=== PATIENT | female | born 1940 | race Caucasian/White ===

== ENCOUNTER 2017-02-10 10:31 | Inpatient (IN) | payer MEDICARE, MEDICAID ==
[~2017-02-10] VITALS: Ht 167.6 cm; Wt 75.7 kg
[2017-02-10] MEDS ORDERED: SODIUM CHLORIDE 0.9% 1,000 ML IV ONE (13:15)
[2017-02-10 13:47] LABS: Basophils # (auto) 0 uL; Basophils % (auto) 0.3 % (0.0-2.0); CONDITION Y; Eosinophils # (auto) 0 uL; Eosinophils % (auto) 0.4 % (0.0-7.0); Hematocrit 32.4 % (36.0-46.0); Lymphocytes # (auto) 0.6 uL; Lymphocytes % (auto) 12.3 % (10.0-50.0); Mean Corpuscular Hemoglobin 30.3 pg (28.0-32.0); Mean Corpuscular Hgb Conc. 33.9 g/dL (32.0-36.0); Mean Corpuscular Volume 89.3 fL (80.0-100.0); Mean Platelet Volume 8.9 fL (7.4-10.4); Monocytes # (auto) 0.2 uL; Neutrophils # (auto) 3.7 uL; Platelet Count (auto) 209 10^3/uL (140-450); Red Cell Distribution Width 17.3 % (11.6-16.0); White Blood Cell 4.6 10^3/uL (4.4-10.8)
[2017-02-10 14:02] LABS: INR 1.02 (0.9-1.15); Partial Thromboplastin Time 28.5 sec (22.64-33.71); Prothrombin Time 11.1 sec (9.37-12.3)
[2017-02-10 14:13] LABS: Albumin 3.2 g/dL (3.4-5.0); Alkaline Phosphatase 78 U/L (45-117); Anion Gap 4 (5-15); Aspartate Aminotransferase 17 U/L (15-37); BUN/Creatinine Ratio 33.3; Bilirubin, Total 0.4 mg/dL (0.2-1.0); Blood Urea Nitrogen 14 mg/dL (7-18); Calcium 7.6 mg/dL (8.5-10.1); Carbon Dioxide 27 mmol/L (21-32); Chloride 109 mmol/L (98-107); GFR African American 190 mL/min; GFR Non-African American 157 mL/min; Glucose 105 mg/dL (74-106); Sodium 140 mmol/L (136-145); Total Protein 6.4 g/dL (6.4-8.2)
[2017-02-10] MEDS ORDERED: MORPHINE SULFATE 10 MG/ML INJ 1ML SDV IV ONE (14:45)
[2017-02-10 14:47] LABS: Urine Bilirubin Negative (Negative); Urine Blood Negative /uL (Negative); Urine Color Yellow (Yellow); Urine Glucose Normal (Normal); Urine Ketone Negative (Negative); Urine Mucus FEW (None Seen); Urine Nitrite Negative (Negative); Urine RBC 2 /hpf (0 - 4); Urine Urobilinogen Normal (Negative); Urine pH 8.5 (5.0-8.0)
[2017-02-10] MEDS ORDERED: OMEP20TA34 (16:11)
[2017-02-10] MEDS ORDERED: CARB200T4 (16:11)
[2017-02-10] MEDS ORDERED: LACTULOSE 20Gm/30ML SOLN PO PRN (16:30)
[2017-02-10] MEDS ORDERED: cefTRIAXone 1GM/50ML D5W 50 ML IV ONE (16:30)
[2017-02-10] MEDS ORDERED: fentaNYL 100MCG/HR 100 MCG/HR PAT TD SCH (16:45)
[2017-02-10] MEDS ORDERED: ACETAMINOPHEN 325 MG TAB PO PRN (16:45)
[2017-02-10] MEDS ORDERED: DOCUSATE SOD 100 MG CAP PO PRN (16:45)
[2017-02-10] MEDS: MULTIPLE VITAMIN TAB PO SCH (17:09)
[2017-02-10] MEDS: PANTOPRAZOLE 40 MG TAB PO SCH (17:09)
[2017-02-10] MEDS: BOOST PLUS 8 ounce PO SCH (19:00)
[2017-02-10] MEDS ORDERED: FENT100D11 TD (19:09)
[2017-02-10] MEDS ORDERED: CARB200T PO (19:09)
[2017-02-10] MEDS ORDERED: TEMA15CA PO (19:09)
[2017-02-10] MEDS ORDERED: LEVO112T32 PO (19:09)
[2017-02-10] MEDS ORDERED: ASPITAB34 OR (19:09)
[2017-02-10] MEDS ORDERED: NIAC500T71 PO (19:09)
[2017-02-10] MEDS ORDERED: CLON05T PO (19:09)
[2017-02-10] MEDS ORDERED: MORP30TA PO (19:09)
[2017-02-10 19:30] VITALS: BP 134/54
[2017-02-10] MEDS ORDERED: MIRT45TA PO (19:32)
[2017-02-10 20:00] VITALS: BP 134/54
[2017-02-10 22:00] VITALS: BP 134/54
[2017-02-10] MEDS ORDERED: FAMOTIDINE 20 MG TAB PO SCH (22:00)
[2017-02-10] MEDS: ATORVASTATIN 20 MG TAB PO SCH (22:00)
[2017-02-10] MEDS: SODIUM CHLOR 0.9% PF (SALINE LOCK) 10ML VIAL IV SCH (22:36)
[2017-02-10] MEDS: carBAMazepine 200 MG TAB PO SCH (22:36)
[2017-02-10] MEDS: fentaNYL 100MCG/HR 100 MCG/HR PAT TD SCH (22:37)
[2017-02-11] MEDS: MORPHINE SULF INJ 2 MG/ML SYRINGE 1ML IV PRN ×3 (02:41→20:21)
[2017-02-11 05:30] VITALS: BP 134/77
[2017-02-11] MEDS: SODIUM CHLOR 0.9% PF (SALINE LOCK) 10ML VIAL IV SCH ×3 (05:32→22:00)
[2017-02-11 06:49] LABS: Basophils # (auto) 0 uL; Basophils % (auto) 0.4 % (0.0-2.0); CONDITION Y; Eosinophils # (auto) 0 uL; Eosinophils % (auto) 1.5 % (0.0-7.0); Hematocrit 31.5 % (36.0-46.0); Hemoglobin 10.6 g/dL (12.2-16.2); Lymphocytes # (auto) 0.9 uL; Lymphocytes % (auto) 28.8 % (10.0-50.0); Mean Corpuscular Hemoglobin 30.1 pg (28.0-32.0); Mean Corpuscular Hgb Conc. 33.5 g/dL (32.0-36.0); Mean Corpuscular Volume 89.8 fL (80.0-100.0); Mean Platelet Volume 9.4 fL (7.4-10.4); Monocytes # (auto) 0.2 uL; Monocytes % (auto) 6.1 % (0.0-12.0); Neutrophils % (auto) 63.2 % (37.0-80.0); Platelet Count (auto) 165 10^3/uL (140-450); Red Cell Distribution Width 17.2 % (11.6-16.0); White Blood Cell 3.1 10^3/uL (4.4-10.8)
[2017-02-11 07:13] LABS: Potassium 3.9 mmol/L (3.5-5.1)
[2017-02-11 07:16] LABS: Albumin 3.1 g/dL (3.4-5.0); BUN/Creatinine Ratio 26.2
[2017-02-11 07:27] LABS: Bilirubin, Total 0.3 mg/dL (0.2-1.0); Total Protein 6.3 g/dL (6.4-8.2)
[2017-02-11] MEDS: BOOST PLUS 8 ounce PO SCH ×3 (08:00→18:00)
[2017-02-11] MEDS: cefTRIAXone 1GM/50ML D5W 50 ML IV SCH (09:09)
[2017-02-11] MEDS: carBAMazepine 200 MG TAB PO SCH ×2 (09:09→22:53)
[2017-02-11] MEDS: MULTIPLE VITAMIN TAB PO SCH (09:20)
[2017-02-11] MEDS: PANTOPRAZOLE 40 MG TAB PO SCH (09:21)
[2017-02-11 13:00] VITALS: BP 155/88
[2017-02-11 16:53] VITALS: BP 157/82
[2017-02-11 22:00] VITALS: BP 143/84
[2017-02-11] MEDS: ATORVASTATIN 20 MG TAB PO SCH (22:53)
[2017-02-11] MEDS: TEMAZEPAM 15 MG CAP PO PRN (22:54)
[2017-02-12 05:00] VITALS: BP_SYST 144; BP_SYST 163; BP_DIAS 84; BP_DIAS 88
[2017-02-12 06:04] LABS: Basophils # (auto) 0 uL; Basophils % (auto) 0.3 % (0.0-2.0); CONDITION Y; Eosinophils # (auto) 0.1 uL; Eosinophils % (auto) 1.4 % (0.0-7.0); Hematocrit 35.2 % (36.0-46.0); Hemoglobin 11.7 g/dL (12.2-16.2); Lymphocytes # (auto) 1.1 uL; Lymphocytes % (auto) 27.2 % (10.0-50.0); Mean Corpuscular Hemoglobin 29.9 pg (28.0-32.0); Mean Corpuscular Hgb Conc. 33.2 g/dL (32.0-36.0); Mean Corpuscular Volume 90.1 fL (80.0-100.0); Mean Platelet Volume 9.1 fL (7.4-10.4); Monocytes # (auto) 0.3 uL; Monocytes % (auto) 6.5 % (0.0-12.0); Neutrophils # (auto) 2.6 uL; Neutrophils % (auto) 64.6 % (37.0-80.0); Platelet Count (auto) 191 10^3/uL (140-450); Red Cell Distribution Width 16.6 % (11.6-16.0); White Blood Cell 4.1 10^3/uL (4.4-10.8)
[2017-02-12] MEDS: SODIUM CHLOR 0.9% PF (SALINE LOCK) 10ML VIAL IV SCH ×3 (06:09→21:43)
[2017-02-12 06:28] LABS: Albumin 3.4 g/dL (3.4-5.0); BUN/Creatinine Ratio 23.5; Bilirubin, Total 0.4 mg/dL (0.2-1.0); Calcium 8.2 mg/dL (8.5-10.1); Potassium 3.3 mmol/L (3.5-5.1); Total Protein 6.8 g/dL (6.4-8.2)
[2017-02-12 08:00] VITALS: BP 147/72
[2017-02-12] MEDS: cefTRIAXone 1GM/50ML D5W 50 ML IV SCH (08:55)
[2017-02-12] MEDS: MORPHINE SULF INJ 2 MG/ML SYRINGE 1ML IV PRN ×4 (08:56→21:43)
[2017-02-12] MEDS: PANTOPRAZOLE 40 MG TAB PO SCH (10:20)
[2017-02-12] MEDS: carBAMazepine 200 MG TAB PO SCH ×2 (10:20→21:42)
[2017-02-12] MEDS: MULTIPLE VITAMIN TAB PO SCH (10:20)
[2017-02-12] MEDS: BOOST PLUS 8 ounce PO SCH ×3 (11:27→18:23)
[2017-02-12 12:44] VITALS: BP 163/85
[2017-02-12 17:00] VITALS: BP 153/93
[2017-02-12] MEDS ORDERED: POTASSIUM CHL 20 Meq TABLET PO ONE (17:30)
[2017-02-12] MEDS: ATORVASTATIN 20 MG TAB PO SCH (21:42)
[2017-02-12 22:00] VITALS: BP 146/73
[2017-02-12] MEDS: TEMAZEPAM 15 MG CAP PO PRN (23:27)
[2017-02-13] VITALS (7 sets, daily range): BP systolic 137–171; BP diastolic 72–99
[2017-02-13] MEDS: SODIUM CHLOR 0.9% PF (SALINE LOCK) 10ML VIAL IV SCH ×3 (06:00→22:00)
[2017-02-13 06:54] LABS: Basophils # (auto) 0 uL; Basophils % (auto) 0.4 % (0.0-2.0); CONDITION Y; Eosinophils # (auto) 0.1 uL; Eosinophils % (auto) 1.6 % (0.0-7.0); Hematocrit 36.7 % (36.0-46.0); Hemoglobin 12.6 g/dL (12.2-16.2); Lymphocytes % (auto) 26.6 % (10.0-50.0); Mean Corpuscular Hemoglobin 30.3 pg (28.0-32.0); Mean Corpuscular Hgb Conc. 34.5 g/dL (32.0-36.0); Mean Corpuscular Volume 87.9 fL (80.0-100.0); Mean Platelet Volume 8.8 fL (7.4-10.4); Monocytes # (auto) 0.3 uL; Neutrophils # (auto) 2.4 uL; Neutrophils % (auto) 64.4 % (37.0-80.0); Platelet Count (auto) 200 10^3/uL (140-450); Red Cell Distribution Width 16.3 % (11.6-16.0); White Blood Cell 3.8 10^3/uL (4.4-10.8)
[2017-02-13 07:23] LABS: Calcium 8.2 mg/dL (8.5-10.1); Magnesium 2.4 mg/dL (1.6-2.6); Phosphorus 3.2 mg/dL (2.5-4.90); Potassium 3.8 mmol/L (3.5-5.1)
[2017-02-13] MEDS: MORPHINE SULF INJ 2 MG/ML SYRINGE 1ML IV PRN ×4 (07:39→20:33)
[2017-02-13] MEDS: ONDANSETRON HCL 4 MG/2 ML VIAL IV PRN (07:46)
[2017-02-13] MEDS: PANTOPRAZOLE 40 MG TAB PO SCH (09:38)
[2017-02-13] MEDS: cefTRIAXone 1GM/50ML D5W 50 ML IV SCH (09:38)
[2017-02-13] MEDS: carBAMazepine 200 MG TAB PO SCH ×2 (09:38→22:53)
[2017-02-13] MEDS: MULTIPLE VITAMIN TAB PO SCH (09:38)
[2017-02-13] MEDS: BOOST PLUS 8 ounce PO SCH ×3 (09:39→17:40)
[2017-02-13] MEDS: metroNIDAZOLE 500 MG TAB PO SCH (17:40)
[2017-02-13] MEDS: ATORVASTATIN 20 MG TAB PO SCH (22:53)
[2017-02-13] MEDS: TEMAZEPAM 15 MG CAP PO PRN (22:53)
[2017-02-13] MEDS: fentaNYL 100MCG/HR 100 MCG/HR PAT TD SCH (22:55)
[2017-02-14] MEDS: MORPHINE SULF INJ 2 MG/ML SYRINGE 1ML IV PRN ×5 (04:22→21:53)
[2017-02-14 05:00] VITALS: BP 153/91
[2017-02-14] MEDS: SODIUM CHLOR 0.9% PF (SALINE LOCK) 10ML VIAL IV SCH ×3 (06:14→22:04)
[2017-02-14 06:29] LABS: Basophils # (auto) 0 uL; Basophils % (auto) 0.4 % (0.0-2.0); CONDITION Y; Eosinophils # (auto) 0.1 uL; Eosinophils % (auto) 1.6 % (0.0-7.0); Hematocrit 36.3 % (36.0-46.0); Hemoglobin 12.4 g/dL (12.2-16.2); Lymphocytes # (auto) 1.1 uL; Lymphocytes % (auto) 34.1 % (10.0-50.0); Mean Corpuscular Hemoglobin 30.3 pg (28.0-32.0); Mean Corpuscular Hgb Conc. 34.1 g/dL (32.0-36.0); Mean Corpuscular Volume 88.9 fL (80.0-100.0); Mean Platelet Volume 9.2 fL (7.4-10.4); Monocytes # (auto) 0.3 uL; Monocytes % (auto) 7.8 % (0.0-12.0); Neutrophils # (auto) 1.9 uL; Neutrophils % (auto) 56.1 % (37.0-80.0); Platelet Count (auto) 168 10^3/uL (140-450); Red Cell Distribution Width 15.8 % (11.6-16.0); White Blood Cell 3.3 10^3/uL (4.4-10.8)
[2017-02-14] MEDS: metroNIDAZOLE 500 MG TAB PO SCH ×4 (06:48→17:40)
[2017-02-14 07:01] LABS: BUN/Creatinine Ratio 34.1; Calcium 8.2 mg/dL (8.5-10.1); Magnesium 2.6 mg/dL (1.6-2.6); Phosphorus 3.7 mg/dL (2.5-4.90); Potassium 3.7 mmol/L (3.5-5.1)
[2017-02-14 08:00] VITALS: BP 122/64
[2017-02-14] MEDS: BOOST PLUS 8 ounce PO SCH ×3 (09:03→17:39)
[2017-02-14] MEDS: cefTRIAXone 1GM/50ML D5W 50 ML IV SCH (09:16)
[2017-02-14 09:17] VITALS: BP 122/64
[2017-02-14] MEDS: MULTIPLE VITAMIN TAB PO SCH (09:17)
[2017-02-14] MEDS: carBAMazepine 200 MG TAB PO SCH ×2 (09:17→21:52)
[2017-02-14 13:00] VITALS: BP 138/73
[2017-02-14 16:49] VITALS: BP 145/87
[2017-02-14] MEDS: ALPRAZolam 0.5 MG TAB PO PRN (18:26)
[2017-02-14 21:37] VITALS: BP 124/73
[2017-02-14] MEDS: ATORVASTATIN 20 MG TAB PO SCH (21:53)
[2017-02-15] MEDS: metroNIDAZOLE 500 MG TAB PO SCH ×5 (00:10→23:01)
[2017-02-15] MEDS: MORPHINE SULF INJ 2 MG/ML SYRINGE 1ML IV PRN ×4 (03:53→20:18)
[2017-02-15] MEDS: ONDANSETRON HCL 4 MG/2 ML VIAL IV PRN ×4 (04:36→20:18)
[2017-02-15] MEDS: SODIUM CHLOR 0.9% PF (SALINE LOCK) 10ML VIAL IV SCH ×3 (05:47→21:24)
[2017-02-15 05:52] VITALS: BP 108/68
[2017-02-15 08:30] VITALS: BP 136/86
[2017-02-15] MEDS: carBAMazepine 200 MG TAB PO SCH ×2 (09:30→21:24)
[2017-02-15] MEDS: MULTIPLE VITAMIN TAB PO SCH (09:30)
[2017-02-15] MEDS: cefTRIAXone 1GM/50ML D5W 50 ML IV SCH (09:31)
[2017-02-15] MEDS: BOOST PLUS 8 ounce PO SCH ×3 (09:31→18:00)
[2017-02-15 12:33] VITALS: BP 150/92
[2017-02-15 16:42] VITALS: BP 160/85
[2017-02-15] MEDS: TEMAZEPAM 15 MG CAP PO PRN (21:23)
[2017-02-15] MEDS: ATORVASTATIN 20 MG TAB PO SCH (21:24)
[2017-02-15 22:00] VITALS: BP 131/80
[2017-02-15] MEDS: ALPRAZolam 0.5 MG TAB PO PRN (23:01)
[2017-02-16 05:00] VITALS: BP 151/78
[2017-02-16] MEDS: SODIUM CHLOR 0.9% PF (SALINE LOCK) 10ML VIAL IV SCH ×3 (05:27→22:13)
[2017-02-16] MEDS: metroNIDAZOLE 500 MG TAB PO SCH ×4 (05:27→23:37)
[2017-02-16] MEDS: MORPHINE SULF INJ 2 MG/ML SYRINGE 1ML IV PRN ×4 (05:27→22:15)
[2017-02-16] MEDS: ONDANSETRON HCL 4 MG/2 ML VIAL IV PRN ×4 (05:28→22:15)
[2017-02-16] MEDS: BOOST PLUS 8 ounce PO SCH ×3 (07:37→22:10)
[2017-02-16] MEDS: cefTRIAXone 1GM/50ML D5W 50 ML IV SCH (08:49)
[2017-02-16 08:57] VITALS: BP 129/69
[2017-02-16] MEDS: carBAMazepine 200 MG TAB PO SCH ×2 (09:46→22:13)
[2017-02-16] MEDS: MULTIPLE VITAMIN TAB PO SCH (09:46)
[2017-02-16] MEDS: ALPRAZolam 0.5 MG TAB PO PRN (12:00)
[2017-02-16] MEDS ORDERED: MET500T PO (12:16)
[2017-02-16 13:00] VITALS: BP 146/73
[2017-02-16 17:00] VITALS: BP 138/73
[2017-02-16 22:00] VITALS: BP 103/44
[2017-02-16] MEDS: ATORVASTATIN 20 MG TAB PO SCH (22:13)
[2017-02-16] MEDS: fentaNYL 100MCG/HR 100 MCG/HR PAT TD SCH (22:14)
[2017-02-17] MEDS: MORPHINE SULF INJ 2 MG/ML SYRINGE 1ML IV PRN ×4 (04:01→20:43)
[2017-02-17] MEDS: ONDANSETRON HCL 4 MG/2 ML VIAL IV PRN ×3 (04:02→20:43)
[2017-02-17 05:00] VITALS: BP 125/65
[2017-02-17] MEDS: SODIUM CHLOR 0.9% PF (SALINE LOCK) 10ML VIAL IV SCH ×3 (05:38→21:42)
[2017-02-17] MEDS: metroNIDAZOLE 500 MG TAB PO SCH ×3 (05:38→18:00)
[2017-02-17] MEDS: ALPRAZolam 0.5 MG TAB PO PRN ×2 (05:50→17:13)
[2017-02-17 08:00] VITALS: BP 139/76
[2017-02-17] MEDS: BOOST PLUS 8 ounce PO SCH ×3 (08:00→18:00)
[2017-02-17 08:11] VITALS: BP 139/76
[2017-02-17] MEDS: MULTIPLE VITAMIN TAB PO SCH (09:21)
[2017-02-17] MEDS: carBAMazepine 200 MG TAB PO SCH ×2 (09:21→21:41)
[2017-02-17] MEDS: cefTRIAXone 1GM/50ML D5W 50 ML IV SCH (09:21)
[2017-02-17 12:45] VITALS: BP 133/72
[2017-02-17] MEDS: fentaNYL 100MCG/HR 100 MCG/HR PAT TD SCH (13:51)
[2017-02-17] MEDS: cloNIDine HCL 0.1 MG TAB PO PRN (16:08)
[2017-02-17 16:48] VITALS: BP 165/98
[2017-02-17] MEDS: TEMAZEPAM 15 MG CAP PO PRN (21:41)
[2017-02-17] MEDS: ATORVASTATIN 20 MG TAB PO SCH (21:42)
[2017-02-17 22:25] VITALS: BP 141/85
[2017-02-18] VITALS (7 sets, daily range): BP systolic 119–157; BP diastolic 55–85
[2017-02-18] MEDS: ALPRAZolam 0.5 MG TAB PO PRN ×2 (00:01→14:21)
[2017-02-18] MEDS: ONDANSETRON HCL 4 MG/2 ML VIAL IV PRN ×3 (05:02→20:07)
[2017-02-18] MEDS: MORPHINE SULF INJ 2 MG/ML SYRINGE 1ML IV PRN ×2 (05:02→12:56)
[2017-02-18] MEDS: SODIUM CHLOR 0.9% PF (SALINE LOCK) 10ML VIAL IV SCH ×3 (05:52→20:20)
[2017-02-18] MEDS: metroNIDAZOLE 500 MG TAB PO SCH ×4 (05:53→20:18)
[2017-02-18] MEDS: MULTIPLE VITAMIN TAB PO SCH (10:09)
[2017-02-18] MEDS: BOOST PLUS 8 ounce PO SCH ×3 (10:09→19:30)
[2017-02-18] MEDS: carBAMazepine 200 MG TAB PO SCH ×2 (10:09→20:19)
[2017-02-18] MEDS: MORPHINE SULFATE 4 MG/ML SYRG IV PRN (20:02)
[2017-02-18] MEDS: ATORVASTATIN 20 MG TAB PO SCH (20:19)
[2017-02-18] MEDS ORDERED: HYDROmorphone HCL 2 MG/ML VL IV ONE (23:15)
[2017-02-19] VITALS (7 sets, daily range): BP systolic 124–155; BP diastolic 65–95
[2017-02-19] MEDS: ONDANSETRON HCL 4 MG/2 ML VIAL IV PRN ×3 (05:04→10:53)
[2017-02-19] MEDS: MORPHINE SULFATE 4 MG/ML SYRG IV PRN ×2 (05:09→10:53)
[2017-02-19] MEDS: SODIUM CHLOR 0.9% PF (SALINE LOCK) 10ML VIAL IV SCH ×3 (05:09→21:24)
[2017-02-19] MEDS: metroNIDAZOLE 500 MG TAB PO SCH ×5 (05:09→21:24)
[2017-02-19] MEDS: ALPRAZolam 0.5 MG TAB PO PRN ×2 (05:22→20:53)
[2017-02-19] MEDS: BOOST PLUS 8 ounce PO SCH ×3 (08:00→18:01)
[2017-02-19] MEDS: carBAMazepine 200 MG TAB PO SCH ×2 (10:53→21:24)
[2017-02-19] MEDS: MULTIPLE VITAMIN TAB PO SCH (10:53)
[2017-02-19] MEDS: HYDROcodone-ACET 5/325MG TAB PO PRN ×3 (15:18→21:25)
[2017-02-19] MEDS: MIRTAZAPINE 30 MG TAB PO SCH (21:24)
[2017-02-19] MEDS: ATORVASTATIN 20 MG TAB PO SCH (21:24)
[2017-02-19] MEDS: TEMAZEPAM 15 MG CAP PO PRN (21:25)
[2017-02-19] MEDS ORDERED: MORPHINE SULF 30 mg ER tab PO SCH (22:00)
[2017-02-20] MEDS: SODIUM CHLOR 0.9% PF (SALINE LOCK) 10ML VIAL IV SCH ×3 (04:51→22:05)
[2017-02-20] MEDS: metroNIDAZOLE 500 MG TAB PO SCH ×3 (04:51→17:28)
[2017-02-20 05:29] VITALS: BP 136/75
[2017-02-20 05:43] LABS: Basophils # (auto) 0 uL; Basophils % (auto) 0.6 % (0.0-2.0); CONDITION Y; Eosinophils # (auto) 0.1 uL; Eosinophils % (auto) 2.7 % (0.0-7.0); Hemoglobin 11.8 g/dL (12.2-16.2); Lymphocytes # (auto) 1.5 uL; Lymphocytes % (auto) 42.6 % (10.0-50.0); Mean Corpuscular Hemoglobin 30.3 pg (28.0-32.0); Mean Corpuscular Hgb Conc. 33.7 g/dL (32.0-36.0); Mean Corpuscular Volume 89.8 fL (80.0-100.0); Mean Platelet Volume 9.1 fL (7.4-10.4); Monocytes # (auto) 0.2 uL; Monocytes % (auto) 6.5 % (0.0-12.0); Neutrophils # (auto) 1.7 uL; Neutrophils % (auto) 47.6 % (37.0-80.0); Platelet Count (auto) 167 10^3/uL (140-450); Red Cell Distribution Width 16.7 % (11.6-16.0); White Blood Cell 3.6 10^3/uL (4.4-10.8)
[2017-02-20 06:03] LABS: Potassium 4.1 mmol/L (3.5-5.1)
[2017-02-20 06:05] LABS: BUN/Creatinine Ratio 27.3; Calcium 8.1 mg/dL (8.5-10.1)
[2017-02-20] MEDS ORDERED: LEVOTHYROXINE SODIUM 112 MCG TAB PO SCH (07:00)
[2017-02-20] MEDS ORDERED: LEVOTHYROXINE SODIUM 25 MCG TAB PO SCH (07:00)
[2017-02-20 07:59] VITALS: BP 130/76
[2017-02-20 08:00] VITALS: BP 143/72
[2017-02-20] MEDS: BOOST PLUS 8 ounce PO SCH ×3 (08:00→18:12)
[2017-02-20] MEDS: HYDROcodone-ACET 5/325MG TAB PO PRN ×3 (08:52→17:28)
[2017-02-20] MEDS: MULTIPLE VITAMIN TAB PO SCH (08:52)
[2017-02-20] MEDS: carBAMazepine 200 MG TAB PO SCH ×2 (08:52→22:06)
[2017-02-20 11:38] VITALS: BP 131/76
[2017-02-20] MEDS: ALPRAZolam 0.5 MG TAB PO PRN ×3 (12:43→18:34)
[2017-02-20 16:25] VITALS: BP 124/76
[2017-02-20] MEDS: fentaNYL 100MCG/HR 100 MCG/HR PAT TD SCH (17:30)
[2017-02-20 21:49] VITALS: BP 134/83
[2017-02-20] MEDS: ATORVASTATIN 20 MG TAB PO SCH (22:05)
[2017-02-20] MEDS: MIRTAZAPINE 30 MG TAB PO SCH (22:06)
[2017-02-21 05:15] VITALS: BP 130/85
[2017-02-21] MEDS: SODIUM CHLOR 0.9% PF (SALINE LOCK) 10ML VIAL IV SCH ×3 (05:33→22:26)
[2017-02-21] MEDS: metroNIDAZOLE 500 MG TAB PO SCH ×4 (05:33→17:58)
[2017-02-21] MEDS: LEVOTHYROXINE SODIUM 50 MCG TAB PO SCH (06:12)
[2017-02-21] MEDS: HYDROcodone-ACET 5/325MG TAB PO PRN ×2 (08:39→14:42)
[2017-02-21] MEDS: ALPRAZolam 0.5 MG TAB PO PRN (08:39)
[2017-02-21 09:00] VITALS: BP 145/82
[2017-02-21] MEDS: BOOST PLUS 8 ounce PO SCH ×3 (11:16→17:57)
[2017-02-21] MEDS: carBAMazepine 200 MG TAB PO SCH ×2 (11:17→22:26)
[2017-02-21] MEDS: MULTIPLE VITAMIN TAB PO SCH (11:17)
[2017-02-21 13:00] VITALS: BP 140/77
[2017-02-21 17:00] VITALS: BP 137/78
[2017-02-21] MEDS: MORPHINE SULFATE 10 MG/5 ML ORAL SOLN PO PRN (18:40)
[2017-02-21 21:41] VITALS: BP 143/94
[2017-02-21] MEDS: busPIRone HCL 10 MG TAB PO SCH (22:26)
[2017-02-21] MEDS: ATORVASTATIN 20 MG TAB PO SCH (22:26)
[2017-02-21] MEDS: MIRTAZAPINE 30 MG TAB PO SCH (22:26)
[2017-02-22] MEDS: metroNIDAZOLE 500 MG TAB PO SCH ×5 (00:22→23:50)
[2017-02-22 05:00] VITALS: BP 142/83
[2017-02-22] MEDS: SODIUM CHLOR 0.9% PF (SALINE LOCK) 10ML VIAL IV SCH ×3 (06:22→21:55)
[2017-02-22] MEDS: busPIRone HCL 10 MG TAB PO SCH ×3 (06:30→22:00)
[2017-02-22] MEDS: LEVOTHYROXINE SODIUM 50 MCG TAB PO SCH (06:30)
[2017-02-22 08:00] VITALS: BP 138/62
[2017-02-22] MEDS: MORPHINE SULFATE 10 MG/5 ML ORAL SOLN PO PRN ×2 (08:35→18:20)
[2017-02-22] MEDS: BOOST PLUS 8 ounce PO SCH ×3 (08:55→18:20)
[2017-02-22] MEDS: cloNIDine HCL 0.1 MG TAB PO PRN (08:56)
[2017-02-22 09:00] VITALS: BP 167/85
[2017-02-22] MEDS: carBAMazepine 200 MG TAB PO SCH ×2 (09:55→22:00)
[2017-02-22] MEDS: MULTIPLE VITAMIN TAB PO SCH (09:55)
[2017-02-22 12:08] VITALS: BP 128/71
[2017-02-22] MEDS: ONDANSETRON HCL 4 MG/2 ML VIAL IV PRN (14:52)
[2017-02-22] MEDS: ALPRAZolam 0.5 MG TAB PO PRN (14:53)
[2017-02-22 17:06] VITALS: BP 154/88
[2017-02-22] MEDS ORDERED: BISACODYL 5 MG EC TAB PO PRN (19:00)
[2017-02-22 21:39] VITALS: BP 140/83
[2017-02-22] MEDS: ATORVASTATIN 20 MG TAB PO SCH (22:00)
[2017-02-22] MEDS: MIRTAZAPINE 30 MG TAB PO SCH (22:00)
[2017-02-23 05:21] VITALS: BP 134/86
[2017-02-23] MEDS: SODIUM CHLOR 0.9% PF (SALINE LOCK) 10ML VIAL IV SCH ×3 (05:49→21:17)
[2017-02-23] MEDS: metroNIDAZOLE 500 MG TAB PO SCH ×4 (06:04→23:50)
[2017-02-23] MEDS: busPIRone HCL 10 MG TAB PO SCH ×3 (06:04→21:16)
[2017-02-23] MEDS: LEVOTHYROXINE SODIUM 50 MCG TAB PO SCH (06:04)
[2017-02-23] MEDS: BOOST PLUS 8 ounce PO SCH ×3 (08:23→17:27)
[2017-02-23] MEDS: carBAMazepine 200 MG TAB PO SCH ×2 (09:01→21:16)
[2017-02-23] MEDS: MULTIPLE VITAMIN TAB PO SCH (09:01)
[2017-02-23] MEDS: MORPHINE SULFATE 10 MG/5 ML ORAL SOLN PO PRN ×2 (09:01→20:09)
[2017-02-23 09:17] VITALS: BP 144/75
[2017-02-23] MEDS: ALPRAZolam 0.5 MG TAB PO PRN (12:31)
[2017-02-23] MEDS ORDERED: METR500T PO (12:43)
[2017-02-23] MEDS ORDERED: MIR30T PO (12:44)
[2017-02-23] MEDS ORDERED: BUSP10TA90 PO (12:44)
[2017-02-23] MEDS ORDERED: ACETAMINOPHEN 325 MG TAB PO PRN (12:45)
[2017-02-23] MEDS ORDERED: ONDANSETRON HCL 4 MG/2 ML VIAL IV PRN (12:45)
[2017-02-23] MEDS ORDERED: FLEET ENEMA(ADULT) 135 ML PR ONE (12:45)
[2017-02-23] MEDS ORDERED: DOCUSATE SOD 100 MG CAP PO PRN (12:45)
[2017-02-23] MEDS: fentaNYL 100MCG/HR 100 MCG/HR PAT TD SCH (12:58)
[2017-02-23 13:00] VITALS: BP 146/68
[2017-02-23] MEDS ORDERED: busPIRone HCL 10 MG TAB PO ONE (13:00)
[2017-02-23] MEDS ORDERED: carBAMazepine 200 MG TAB PO ONE (13:00)
[2017-02-23 17:00] VITALS: BP 159/91
[2017-02-23] MEDS ORDERED: MORPHINE SULFATE 10 MG/5 ML ORAL SOLN ONE (20:01)
[2017-02-23] MEDS: ATORVASTATIN 20 MG TAB PO SCH (21:16)
[2017-02-23] MEDS: MIRTAZAPINE 30 MG TAB PO SCH (21:17)
[2017-02-23 22:46] VITALS: BP 150/70
[2017-02-23 22:47] VITALS: BP 150/70
[2017-02-24 04:42] VITALS: BP 163/74
[2017-02-24] MEDS: LEVOTHYROXINE SODIUM 50 MCG TAB PO SCH (06:02)
[2017-02-24] MEDS: SODIUM CHLOR 0.9% PF (SALINE LOCK) 10ML VIAL IV SCH ×3 (06:02→21:29)
[2017-02-24] MEDS: metroNIDAZOLE 500 MG TAB PO SCH ×4 (06:02→23:47)
[2017-02-24] MEDS: busPIRone HCL 10 MG TAB PO SCH ×3 (06:02→21:30)
[2017-02-24] MEDS: cloNIDine HCL 0.1 MG TAB PO PRN (06:12)
[2017-02-24] MEDS: BOOST PLUS 8 ounce PO SCH ×3 (08:00→18:00)
[2017-02-24] MEDS: MORPHINE SULFATE 10 MG/5 ML ORAL SOLN PO PRN ×2 (08:40→17:50)
[2017-02-24 09:00] VITALS: BP 158/98
[2017-02-24] MEDS: carBAMazepine 200 MG TAB PO SCH ×2 (09:26→21:30)
[2017-02-24] MEDS: MULTIPLE VITAMIN TAB PO SCH (09:27)
[2017-02-24] MEDS: ALPRAZolam 0.5 MG TAB PO PRN (09:53)
[2017-02-24 13:00] VITALS: BP 137/95
[2017-02-24] MEDS: ATENOLOL 25 MG TAB PO SCH (15:45)
[2017-02-24 17:00] VITALS: BP 149/67
[2017-02-24] MEDS: MIRTAZAPINE 30 MG TAB PO SCH (21:30)
[2017-02-24] MEDS: ATORVASTATIN 20 MG TAB PO SCH (21:30)
[2017-02-24 22:00] VITALS: BP 141/72
[2017-02-25 05:24] VITALS: BP 130/85
[2017-02-25] MEDS: metroNIDAZOLE 500 MG TAB PO SCH ×3 (06:31→21:22)
[2017-02-25] MEDS: SODIUM CHLOR 0.9% PF (SALINE LOCK) 10ML VIAL IV SCH ×3 (06:31→21:21)
[2017-02-25] MEDS: LEVOTHYROXINE SODIUM 50 MCG TAB PO SCH (06:31)
[2017-02-25] MEDS: busPIRone HCL 10 MG TAB PO SCH ×3 (06:31→21:21)
[2017-02-25] MEDS: BOOST PLUS 8 ounce PO SCH ×2 (08:10→12:00)
[2017-02-25] MEDS: ALPRAZolam 0.5 MG TAB PO PRN (08:32)
[2017-02-25 09:00] VITALS: BP 124/84
[2017-02-25] MEDS: carBAMazepine 200 MG TAB PO SCH ×2 (10:26→21:22)
[2017-02-25] MEDS: MULTIPLE VITAMIN TAB PO SCH (10:26)
[2017-02-25] MEDS: ATENOLOL 25 MG TAB PO SCH (10:27)
[2017-02-25 13:03] VITALS: BP 125/80
[2017-02-25] MEDS ORDERED: cloNIDine HCL 0.1 MG TAB PO PRN (13:45)
[2017-02-25] MEDS ORDERED: metroNIDAZOLE 500 MG TAB PO SCH (14:00)
[2017-02-25 17:03] VITALS: BP 134/79
[2017-02-25 20:00] VITALS: BP 126/67
[2017-02-25] MEDS: MORPHINE SULFATE 10 MG/5 ML ORAL SOLN PO PRN (20:26)
[2017-02-25] MEDS: MIRTAZAPINE 30 MG TAB PO SCH (21:22)
[2017-02-25] MEDS: ATORVASTATIN 20 MG TAB PO SCH (21:22)
[2017-02-25] MEDS: TEMAZEPAM 15 MG CAP PO PRN (21:34)
[2017-02-25 21:58] VITALS: BP 126/67
[2017-02-26 04:46] VITALS: BP 148/69
[2017-02-26] MEDS: metroNIDAZOLE 500 MG TAB PO SCH (06:00)
[2017-02-26] MEDS: SODIUM CHLOR 0.9% PF (SALINE LOCK) 10ML VIAL IV SCH ×3 (06:00→22:06)
[2017-02-26] MEDS: busPIRone HCL 10 MG TAB PO SCH ×3 (06:00→22:06)
[2017-02-26] MEDS: LEVOTHYROXINE SODIUM 50 MCG TAB PO SCH (06:01)
[2017-02-26] MEDS: BOOST PLUS 8 ounce PO SCH ×4 (08:00→18:00)
[2017-02-26] MEDS: carBAMazepine 200 MG TAB PO SCH ×2 (08:56→22:07)
[2017-02-26] MEDS: MULTIPLE VITAMIN TAB PO SCH (08:56)
[2017-02-26] MEDS: MORPHINE SULFATE 10 MG/5 ML ORAL SOLN PO PRN ×2 (08:56→15:47)
[2017-02-26 09:00] VITALS: BP 142/73
[2017-02-26] MEDS: ATENOLOL 25 MG TAB PO SCH (09:06)
[2017-02-26] MEDS: ALPRAZolam 0.5 MG TAB PO PRN ×3 (09:06→22:07)
[2017-02-26 13:00] VITALS: BP 140/80
[2017-02-26] MEDS: fentaNYL 100MCG/HR 100 MCG/HR PAT TD SCH (13:58)
[2017-02-26 16:59] VITALS: BP 117/61
[2017-02-26 20:00] VITALS: BP 122/71
[2017-02-26 21:30] VITALS: BP 122/71
[2017-02-26] MEDS: MIRTAZAPINE 30 MG TAB PO SCH (22:07)
[2017-02-26] MEDS: ATORVASTATIN 20 MG TAB PO SCH (22:07)
[2017-02-27] MEDS: TEMAZEPAM 15 MG CAP PO PRN (01:25)
[2017-02-27 05:00] VITALS: BP 131/64
[2017-02-27] MEDS: LEVOTHYROXINE SODIUM 50 MCG TAB PO SCH (05:34)
[2017-02-27] MEDS: SODIUM CHLOR 0.9% PF (SALINE LOCK) 10ML VIAL IV SCH ×3 (05:34→21:20)
[2017-02-27] MEDS: busPIRone HCL 10 MG TAB PO SCH ×3 (05:34→21:18)
[2017-02-27 08:00] VITALS: BP 136/76
[2017-02-27] MEDS: BOOST PLUS 8 ounce PO SCH ×3 (08:00→18:02)
[2017-02-27 08:39] VITALS: BP 136/76
[2017-02-27] MEDS: MORPHINE SULFATE 10 MG/5 ML ORAL SOLN PO PRN ×2 (09:42→15:10)
[2017-02-27] MEDS: carBAMazepine 200 MG TAB PO SCH ×2 (10:18→21:19)
[2017-02-27] MEDS: ALPRAZolam 0.5 MG TAB PO PRN ×2 (10:18→21:59)
[2017-02-27] MEDS: MULTIPLE VITAMIN TAB PO SCH (10:18)
[2017-02-27] MEDS: ATENOLOL 25 MG TAB PO SCH (10:19)
[2017-02-27 13:00] VITALS: BP 126/72
[2017-02-27 17:33] VITALS: BP 121/59
[2017-02-27] MEDS: ATORVASTATIN 20 MG TAB PO SCH (21:19)
[2017-02-27] MEDS: MIRTAZAPINE 30 MG TAB PO SCH (21:20)
[2017-02-27 22:00] VITALS: BP 143/68
[2017-02-28 05:05] VITALS: BP 129/75
[2017-02-28] MEDS: SODIUM CHLOR 0.9% PF (SALINE LOCK) 10ML VIAL IV SCH ×3 (06:00→21:47)
[2017-02-28] MEDS: busPIRone HCL 10 MG TAB PO SCH ×3 (06:46→21:43)
[2017-02-28] MEDS: LEVOTHYROXINE SODIUM 50 MCG TAB PO SCH (06:47)
[2017-02-28] MEDS: BOOST PLUS 8 ounce PO SCH ×3 (07:27→17:02)
[2017-02-28 08:00] VITALS: BP 149/72
[2017-02-28] MEDS: ATENOLOL 25 MG TAB PO SCH (09:11)
[2017-02-28] MEDS: MULTIPLE VITAMIN TAB PO SCH (09:11)
[2017-02-28] MEDS: MORPHINE SULFATE 10 MG/5 ML ORAL SOLN PO PRN ×2 (09:12→13:54)
[2017-02-28 09:26] VITALS: BP 160/91
[2017-02-28] MEDS: carBAMazepine 200 MG TAB PO SCH ×2 (09:49→21:47)
[2017-02-28 13:00] VITALS: BP 150/74
[2017-02-28] MEDS: ALPRAZolam 0.5 MG TAB PO PRN ×2 (15:10→21:45)
[2017-02-28 17:18] VITALS: BP 111/67
[2017-02-28 21:39] VITALS: BP 127/73
[2017-02-28] MEDS: ATORVASTATIN 20 MG TAB PO SCH (21:44)
[2017-02-28] MEDS: MIRTAZAPINE 30 MG TAB PO SCH (21:46)
[2017-03-01] MEDS: MORPHINE SULFATE 10 MG/5 ML ORAL SOLN PO PRN ×3 (04:29→21:00)
[2017-03-01 05:18] VITALS: BP 156/91
[2017-03-01 05:20] LABS: Basophils # (auto) 0 uL; Basophils % (auto) 0.9 % (0.0-2.0); CONDITION Y; Eosinophils # (auto) 0.1 uL; Eosinophils % (auto) 2.7 % (0.0-7.0); Hematocrit 37.4 % (36.0-46.0); Hemoglobin 12.5 g/dL (12.2-16.2); Lymphocytes # (auto) 1.5 uL; Lymphocytes % (auto) 38.2 % (10.0-50.0); Mean Corpuscular Hemoglobin 30.8 pg (28.0-32.0); Mean Corpuscular Hgb Conc. 33.5 g/dL (32.0-36.0); Mean Corpuscular Volume 91.9 fL (80.0-100.0); Mean Platelet Volume 9.2 fL (7.4-10.4); Monocytes # (auto) 0.2 uL; Monocytes % (auto) 5.8 % (0.0-12.0); Neutrophils % (auto) 52.4 % (37.0-80.0); Platelet Count (auto) 181 10^3/uL (140-450); Red Cell Distribution Width 18.7 % (11.6-16.0); White Blood Cell 3.9 10^3/uL (4.4-10.8)
[2017-03-01] MEDS: ALPRAZolam 0.5 MG TAB PO PRN ×2 (05:26→12:33)
[2017-03-01] MEDS: busPIRone HCL 10 MG TAB PO SCH ×3 (05:26→21:04)
[2017-03-01 05:34] LABS: INR 0.98 (0.9-1.15); Prothrombin Time 10.7 sec (9.37-12.3)
[2017-03-01 05:49] LABS: Albumin 3.7 g/dL (3.4-5.0); BUN/Creatinine Ratio 25.9; Bilirubin, Total 0.3 mg/dL (0.2-1.0); Calcium 8.4 mg/dL (8.5-10.1); Magnesium 2.6 mg/dL (1.6-2.6); Potassium 4.8 mmol/L (3.5-5.1)
[2017-03-01] MEDS: SODIUM CHLOR 0.9% PF (SALINE LOCK) 10ML VIAL IV SCH ×3 (06:00→22:00)
[2017-03-01] MEDS: LEVOTHYROXINE SODIUM 50 MCG TAB PO SCH (07:18)
[2017-03-01 08:00] VITALS: BP 103/64
[2017-03-01] MEDS: BOOST PLUS 8 ounce PO SCH ×3 (08:00→18:00)
[2017-03-01 08:02] VITALS: BP 149/72
[2017-03-01] MEDS: carBAMazepine 200 MG TAB PO SCH ×2 (09:57→21:03)
[2017-03-01] MEDS: MULTIPLE VITAMIN TAB PO SCH (09:57)
[2017-03-01] MEDS: ATENOLOL 25 MG TAB PO SCH (09:58)
[2017-03-01 12:00] VITALS: BP 117/57
[2017-03-01] MEDS: fentaNYL 100MCG/HR 100 MCG/HR PAT TD SCH (14:45)
[2017-03-01 17:00] VITALS: BP 133/71
[2017-03-01] MEDS: ATORVASTATIN 20 MG TAB PO SCH (21:04)
[2017-03-01] MEDS: MIRTAZAPINE 30 MG TAB PO SCH (21:05)
[2017-03-01 23:42] VITALS: BP 148/66
[2017-03-02 05:50] VITALS: BP 103/72
[2017-03-02] MEDS: SODIUM CHLOR 0.9% PF (SALINE LOCK) 10ML VIAL IV SCH ×3 (06:00→22:19)
[2017-03-02] MEDS: busPIRone HCL 10 MG TAB PO SCH ×3 (06:57→22:22)
[2017-03-02] MEDS: LEVOTHYROXINE SODIUM 50 MCG TAB PO SCH (06:58)
[2017-03-02] MEDS: MORPHINE SULFATE 10 MG/5 ML ORAL SOLN PO PRN ×3 (07:58→22:23)
[2017-03-02 09:00] VITALS: BP 142/76
[2017-03-02] MEDS: MULTIPLE VITAMIN TAB PO SCH (10:17)
[2017-03-02] MEDS: ALPRAZolam 0.5 MG TAB PO PRN ×2 (10:19→18:25)
[2017-03-02] MEDS: ATENOLOL 25 MG TAB PO SCH (10:19)
[2017-03-02] MEDS: carBAMazepine 200 MG TAB PO SCH ×2 (10:24→22:21)
[2017-03-02] MEDS: BOOST PLUS 8 ounce PO SCH ×3 (10:24→18:16)
[2017-03-02 13:00] VITALS: BP 131/78
[2017-03-02 14:21] LABS: Urine RBC None Seen /hpf (0 - 4)
[2017-03-02 14:26] LABS: Urine Bilirubin Negative (Negative); Urine Blood Negative /uL (Negative); Urine Color Yellow (Yellow); Urine Glucose Normal (Normal); Urine Ketone Negative (Negative); Urine Nitrite Negative (Negative); Urine Urobilinogen Normal (Negative); Urine pH 6.5 (5.0-8.0)
[2017-03-02 17:00] VITALS: BP 139/64
[2017-03-02 21:31] VITALS: BP 144/81
[2017-03-02] MEDS: MIRTAZAPINE 30 MG TAB PO SCH (22:20)
[2017-03-02] MEDS: ATORVASTATIN 20 MG TAB PO SCH (22:20)
[2017-03-03 05:08] VITALS: BP 113/54
[2017-03-03] MEDS: SODIUM CHLOR 0.9% PF (SALINE LOCK) 10ML VIAL IV SCH ×3 (06:00→21:51)
[2017-03-03 06:15] LABS: Basophils # (auto) 0 uL; Basophils % (auto) 0.3 % (0.0-2.0); CONDITION Y; Eosinophils # (auto) 0.1 uL; Eosinophils % (auto) 1.8 % (0.0-7.0); Hematocrit 33.2 % (36.0-46.0); Hemoglobin 11.3 g/dL (12.2-16.2); Lymphocytes # (auto) 1.2 uL; Lymphocytes % (auto) 30.3 % (10.0-50.0); Mean Corpuscular Hemoglobin 31.1 pg (28.0-32.0); Mean Corpuscular Hgb Conc. 33.9 g/dL (32.0-36.0); Mean Corpuscular Volume 91.8 fL (80.0-100.0); Mean Platelet Volume 9.6 fL (7.4-10.4); Monocytes # (auto) 0.3 uL; Monocytes % (auto) 7.4 % (0.0-12.0); Neutrophils # (auto) 2.5 uL; Neutrophils % (auto) 60.2 % (37.0-80.0); Platelet Count (auto) 138 10^3/uL (140-450); Red Cell Distribution Width 18.3 % (11.6-16.0); SUSPECT SEE PRINTOUT; White Blood Cell 4.1 10^3/uL (4.4-10.8)
[2017-03-03 06:43] LABS: Albumin 3.1 g/dL (3.4-5.0); BUN/Creatinine Ratio 35.1; Bilirubin, Total 0.3 mg/dL (0.2-1.0); Calcium 7.8 mg/dL (8.5-10.1); Potassium 3.9 mmol/L (3.5-5.1); Total Protein 6.1 g/dL (6.4-8.2)
[2017-03-03] MEDS: busPIRone HCL 10 MG TAB PO SCH ×3 (06:50→21:51)
[2017-03-03] MEDS: ALPRAZolam 0.5 MG TAB PO PRN ×2 (06:51→13:00)
[2017-03-03] MEDS: LEVOTHYROXINE SODIUM 50 MCG TAB PO SCH (06:52)
[2017-03-03] MEDS: BOOST PLUS 8 ounce PO SCH ×3 (06:58→17:52)
[2017-03-03] MEDS: MULTIPLE VITAMIN TAB PO SCH (09:56)
[2017-03-03] MEDS: ATENOLOL 25 MG TAB PO SCH (09:56)
[2017-03-03] MEDS: carBAMazepine 200 MG TAB PO SCH ×2 (09:56→21:51)
[2017-03-03 10:19] VITALS: BP 123/64
[2017-03-03] MEDS: MORPHINE SULFATE 10 MG/5 ML ORAL SOLN PO PRN ×2 (10:21→21:49)
[2017-03-03 12:06] VITALS: BP 137/68
[2017-03-03 17:28] VITALS: BP 121/72
[2017-03-03] MEDS: ATORVASTATIN 20 MG TAB PO SCH (21:50)
[2017-03-03] MEDS: MIRTAZAPINE 30 MG TAB PO SCH (21:50)
[2017-03-03 22:00] VITALS: BP 139/69
[2017-03-04 05:00] VITALS: BP 132/76
[2017-03-04] MEDS: SODIUM CHLOR 0.9% PF (SALINE LOCK) 10ML VIAL IV SCH (06:13)
[2017-03-04] MEDS: busPIRone HCL 10 MG TAB PO SCH (06:13)
[2017-03-04] MEDS: LEVOTHYROXINE SODIUM 50 MCG TAB PO SCH (06:14)
[2017-03-04] MEDS: BOOST PLUS 8 ounce PO SCH ×2 (08:00→12:00)
[2017-03-04] MEDS: carBAMazepine 200 MG TAB PO SCH (09:41)
[2017-03-04] MEDS: MULTIPLE VITAMIN TAB PO SCH (09:42)
[2017-03-04] MEDS: ATENOLOL 25 MG TAB PO SCH (09:42)
[2017-03-04] MEDS: MORPHINE SULFATE 10 MG/5 ML ORAL SOLN PO PRN (09:42)
[2017-03-04 10:00] VITALS: BP 130/72
== END 2017-03-04 13:45 | disposition home or self-care (01) | DRG 371 ==
LOC: ER 10:31 → EDBD 10:31 → OVERFLOW 10:32 → WEST WING 17:58
PROVIDERS: ADMIT Internal Medicine; ATTEND Internal Medicine
DX: A04.7 Enterocolitis due to Clostridium difficile (principal); G92 Toxic encephalopathy; N39.0 Urinary tract infection, site not specified; E44.0 Moderate protein-calorie malnutrition; F05 Delirium due to known physiological condition; F11.20 Opioid dependence, uncomplicated; D63.8 Anemia in other chronic diseases classified elsewhere; E83.41 Hypermagnesemia; E83.51 Hypocalcemia; G89.4 Chronic pain syndrome; E86.0 Dehydration; E03.9 Hypothyroidism, unspecified; G30.9 Alzheimer's disease, unspecified; F02.80 Dementia in other diseases classified elsewhere, unspecified severity, without behavioral disturbance, psychotic disturbance, mood disturbance, and anxiety; F32.9 Major depressive disorder, single episode, unspecified; F41.1 Generalized anxiety disorder; G40.909 Epilepsy, unspecified, not intractable, without status epilepticus; G62.9 Polyneuropathy, unspecified; M54.5 Low back pain; I10 Essential (primary) hypertension; G43.909 Migraine, unspecified, not intractable, without status migrainosus; G31.84 Mild cognitive impairment of uncertain or unknown etiology; K59.00 Constipation, unspecified; Z79.899 Other long term (current) drug therapy; Z82.49 Family history of ischemic heart disease and other diseases of the circulatory system; Z88.2 Allergy status to sulfonamides; Z68.26 Body mass index [BMI] 26.0-26.9, adult; Z88.8 Allergy status to other drugs, medicaments and biological substances; Z79.82 Long term (current) use of aspirin; Z79.891 Long term (current) use of opiate analgesic; Y92.89 Other specified places as the place of occurrence of the external cause; T50.905A Adverse effect of unspecified drugs, medicaments and biological substances, initial encounter
CPT/HCPCS: 36415; 70450; 71020; 74022; 80048; 80053; 80307; 80320; 81001; 82607; 82962; 83735; 84100; 84439; 84443; 84484; 85025; 85610; 85730; 87081; 87086; 92610; 93005; 93306; 93886; 94761; 96361; 96365; 96375; 97163; J0696; J2405

== ENCOUNTER 2017-03-10 11:24 | Inpatient (IN) | payer MEDICARE, MEDICAID ==
[~2017-03-10] VITALS: Ht 167.6 cm; Wt 75.1 kg
[~2017-03-10 11:24] MED LIST: ASPITAB34 OR; BUSP10TA90 PO; CARB200T PO; CARB200T4; CLON05T PO; FENT100D11 TD; LEVO112T32 PO; MIR30T PO; MORP30TA PO; NIAC500T71 PO; OMEP20TA34; TEMA15CA PO
[2017-03-10 12:19] LABS: Basophils # (auto) 0 uL; Basophils % (auto) 0.2 % (0.0-2.0); CONDITION Y; Eosinophils # (auto) 0.1 uL; Hematocrit 37.3 % (36.0-46.0); Hemoglobin 12.5 g/dL (12.2-16.2); Lymphocytes # (auto) 0.6 uL; Lymphocytes % (auto) 11.9 % (10.0-50.0); Mean Corpuscular Hemoglobin 31.2 pg (28.0-32.0); Mean Corpuscular Hgb Conc. 33.5 g/dL (32.0-36.0); Mean Corpuscular Volume 93.2 fL (80.0-100.0); Mean Platelet Volume 8.8 fL (7.4-10.4); Monocytes # (auto) 0.4 uL; Monocytes % (auto) 7.1 % (0.0-12.0); Neutrophils % (auto) 79.8 % (37.0-80.0); Platelet Count (auto) 187 10^3/uL (140-450); Red Cell Distribution Width 18.2 % (11.6-16.0)
[2017-03-10 12:43] LABS: Albumin 3.4 g/dL (3.4-5.0); Alkaline Phosphatase 85 U/L (45-117); Anion Gap 7 (5-15); Aspartate Aminotransferase 32 U/L (15-37); BUN/Creatinine Ratio 26.4; Bilirubin, Total 0.3 mg/dL (0.2-1.0); Blood Urea Nitrogen 14 mg/dL (7-18); Calcium 8.2 mg/dL (8.5-10.1); Carbon Dioxide 29 mmol/L (21-32); Chloride 102 mmol/L (98-107); GFR African American 145 mL/min; GFR Non-African American 120 mL/min; Glucose 130 mg/dL (74-106); Sodium 138 mmol/L (136-145)
[2017-03-10] MEDS ORDERED: SODIUM CHLORIDE 0.9% 1,000 ML IVB ONE (13:26)
[2017-03-10 13:48] LABS: Magnesium 3.1 mg/dL (1.6-2.6)
[2017-03-10] MEDS ORDERED: HYDROcodone-ACET 5/325MG TAB PO PRN (15:15)
[2017-03-10] MEDS ORDERED: MORPHINE SULF INJ 2 MG/ML SYRINGE 1ML IV PRN (15:15)
[2017-03-10] MEDS ORDERED: DEXTROSE (50%) 50ML SYRG IV PRN (15:15)
[2017-03-10] MEDS ORDERED: ACETAMINOPHEN 325 MG TAB PO PRN (15:15)
[2017-03-10] MEDS ORDERED: DIPHENOXYLATE W/ATROPINE 2.5 MG TAB PO PRN (15:15)
[2017-03-10] MEDS ORDERED: TEMAZEPAM 15 MG CAP PO PRN (15:15)
[2017-03-10] MEDS ORDERED: NITROGLYCERIN 0.4 MG SL TAB SL PRN (15:15)
[2017-03-10] MEDS: metroNIDAZOLE 500 MG TAB PO SCH ×2 (16:45→22:04)
[2017-03-10] MEDS: SODIUM CHLORIDE 0.9% 1,000 ML IV SCH (16:45)
[2017-03-10] MEDS: NIACIN 100 MG TAB PO SCH ×2 (16:46→18:16)
[2017-03-10] MEDS: PANTOPRAZOLE 40 MG TAB PO SCH (16:46)
[2017-03-10] MEDS: MULTIPLE VITAMIN TAB PO SCH (16:46)
[2017-03-10] MEDS: ACCU-CHEK COMFORT CURVE STRIP VI SCH ×2 (16:47→22:05)
[2017-03-10] MEDS: InsuLIN REG 1unit/0.01ml Soln (100units/ml) SC SCH ×2 (17:00→22:00)
[2017-03-10] MEDS: fentaNYL 100MCG/HR 100 MCG/HR PAT TD SCH (17:08)
[2017-03-10 17:40] VITALS: BP 130/73
[2017-03-10 22:00] VITALS: BP 151/79
[2017-03-10] MEDS ORDERED: FAMOTIDINE 20 MG TAB PO SCH (22:00)
[2017-03-10] MEDS: MIRTAZAPINE 30 MG TAB PO SCH (22:04)
[2017-03-10] MEDS: carBAMazepine 200 MG TAB PO SCH (22:04)
[2017-03-10] MEDS: clonazePAM 0.5 MG TAB PO SCH (22:04)
[2017-03-10] MEDS: busPIRone HCL 10 MG TAB PO SCH (22:05)
[2017-03-11] MEDS: SODIUM CHLORIDE 0.9% 1,000 ML IV SCH ×2 (01:34→08:23)
[2017-03-11 05:30] VITALS: BP 124/71
[2017-03-11] MEDS: LEVOTHYROXINE SODIUM 112 MCG TAB PO SCH (06:02)
[2017-03-11] MEDS: clonazePAM 0.5 MG TAB PO SCH ×3 (06:02→21:38)
[2017-03-11] MEDS: LEVOTHYROXINE SODIUM 25 MCG TAB PO SCH (06:02)
[2017-03-11] MEDS: busPIRone HCL 10 MG TAB PO SCH ×3 (06:02→21:37)
[2017-03-11] MEDS: metroNIDAZOLE 500 MG TAB PO SCH ×3 (06:02→21:38)
[2017-03-11] MEDS: ACCU-CHEK COMFORT CURVE STRIP VI SCH ×4 (06:03→22:52)
[2017-03-11] MEDS: InsuLIN REG 1unit/0.01ml Soln (100units/ml) SC SCH ×4 (06:03→22:00)
[2017-03-11 07:58] LABS: Basophils # (auto) 0 uL; Basophils % (auto) 0.5 % (0.0-2.0); CONDITION Y; Eosinophils # (auto) 0.1 uL; Eosinophils % (auto) 2.6 % (0.0-7.0); Hematocrit 31.3 % (36.0-46.0); Hemoglobin 10.5 g/dL (12.2-16.2); Lymphocytes # (auto) 0.9 uL; Lymphocytes % (auto) 31.2 % (10.0-50.0); Mean Corpuscular Hemoglobin 31.7 pg (28.0-32.0); Mean Corpuscular Hgb Conc. 33.6 g/dL (32.0-36.0); Mean Corpuscular Volume 94.3 fL (80.0-100.0); Monocytes # (auto) 0.2 uL; Monocytes % (auto) 6.7 % (0.0-12.0); Neutrophils # (auto) 1.7 uL; Platelet Count (auto) 137 10^3/uL (140-450); Red Cell Distribution Width 17.7 % (11.6-16.0); White Blood Cell 2.9 10^3/uL (4.4-10.8)
[2017-03-11 08:00] VITALS: BP 124/67
[2017-03-11 08:18] LABS: Albumin 2.7 g/dL (3.4-5.0); BUN/Creatinine Ratio 33.3; Bilirubin, Total 0.3 mg/dL (0.2-1.0); Calcium 7.6 mg/dL (8.5-10.1); Total Protein 5.7 g/dL (6.4-8.2)
[2017-03-11] MEDS: PANTOPRAZOLE 40 MG TAB PO SCH (10:00)
[2017-03-11] MEDS: NIACIN 100 MG TAB PO SCH (10:00)
[2017-03-11] MEDS: carBAMazepine 200 MG TAB PO SCH ×2 (10:00→21:39)
[2017-03-11] MEDS: MULTIPLE VITAMIN TAB PO SCH (10:00)
[2017-03-11 13:00] VITALS: BP 153/76
[2017-03-11 20:00] VITALS: BP 121/68
[2017-03-11] MEDS: MIRTAZAPINE 30 MG TAB PO SCH (21:38)
[2017-03-11 22:00] VITALS: BP 121/68
[2017-03-12 05:30] VITALS: BP 152/83
[2017-03-12] MEDS: LEVOTHYROXINE SODIUM 112 MCG TAB PO SCH (06:26)
[2017-03-12] MEDS: metroNIDAZOLE 500 MG TAB PO SCH (06:27)
[2017-03-12] MEDS: LEVOTHYROXINE SODIUM 25 MCG TAB PO SCH (06:27)
[2017-03-12] MEDS: busPIRone HCL 10 MG TAB PO SCH ×3 (06:27→21:28)
[2017-03-12] MEDS: clonazePAM 0.5 MG TAB PO SCH ×3 (06:27→21:29)
[2017-03-12] MEDS: ACCU-CHEK COMFORT CURVE STRIP VI SCH ×4 (06:39→21:50)
[2017-03-12] MEDS: InsuLIN REG 1unit/0.01ml Soln (100units/ml) SC SCH ×4 (06:40→21:50)
[2017-03-12 09:00] VITALS: BP 139/86
[2017-03-12] MEDS: NIACIN 100 MG TAB PO SCH (10:10)
[2017-03-12] MEDS: MULTIPLE VITAMIN TAB PO SCH (10:10)
[2017-03-12] MEDS: PANTOPRAZOLE 40 MG TAB PO SCH (10:10)
[2017-03-12] MEDS: carBAMazepine 200 MG TAB PO SCH ×2 (10:10→21:27)
[2017-03-12] MEDS: MORPHINE SULF INJ 2 MG/ML SYRINGE 1ML IV PRN ×3 (10:11→22:01)
[2017-03-12] MEDS ORDERED: VANCOMYCIN HCL 125MG/5ML ORAL SOL PO SCH (12:00)
[2017-03-12 13:00] VITALS: BP 134/69
[2017-03-12 16:30] VITALS: BP 148/83
[2017-03-12] MEDS: VANCOMYCIN HCL 125MG/5ML ORAL SOL PO SCH ×2 (17:39→21:30)
[2017-03-12 19:14] LABS: Urine Bilirubin Negative (Negative); Urine Blood Negative /uL (Negative); Urine Color Yellow (Yellow); Urine Glucose Normal (Normal); Urine Ketone Negative (Negative); Urine Mucus FEW (None Seen); Urine Nitrite Negative (Negative); Urine RBC <1 /hpf (0 - 4); Urine Squamous Epithelial Cell FEW /hpf (<5); Urine Urobilinogen Normal (Negative); Urine pH 6.5 (5.0-8.0)
[2017-03-12 20:00] VITALS: BP 152/84
[2017-03-12] MEDS: MIRTAZAPINE 30 MG TAB PO SCH (21:28)
[2017-03-12] MEDS: MUPIROCIN 2% OINT 22GM EACHNOSTRI SCH (21:31)
[2017-03-12] MEDS: Boost Glucose Control 8 Ounces PO SCH (21:31)
[2017-03-12 22:00] VITALS: BP 152/84
[2017-03-13] MEDS: MORPHINE SULF INJ 2 MG/ML SYRINGE 1ML IV PRN ×4 (04:43→21:41)
[2017-03-13 05:30] VITALS: BP 138/71
[2017-03-13] MEDS: VANCOMYCIN HCL 125MG/5ML ORAL SOL PO SCH ×4 (05:53→23:31)
[2017-03-13] MEDS: busPIRone HCL 10 MG TAB PO SCH ×3 (05:54→21:38)
[2017-03-13] MEDS: clonazePAM 0.5 MG TAB PO SCH ×3 (05:54→21:38)
[2017-03-13] MEDS: LEVOTHYROXINE SODIUM 112 MCG TAB PO SCH (05:54)
[2017-03-13] MEDS: LEVOTHYROXINE SODIUM 25 MCG TAB PO SCH (05:54)
[2017-03-13] MEDS: ONDANSETRON HCL 4 MG/2 ML VIAL IV PRN ×3 (05:56→21:51)
[2017-03-13] MEDS: ACCU-CHEK COMFORT CURVE STRIP VI SCH ×4 (05:56→21:38)
[2017-03-13] MEDS: InsuLIN REG 1unit/0.01ml Soln (100units/ml) SC SCH ×4 (06:12→22:00)
[2017-03-13 07:45] VITALS: BP 141/80
[2017-03-13 09:00] VITALS: BP 141/80
[2017-03-13] MEDS: Boost Glucose Control 8 Ounces PO SCH ×2 (10:00→21:38)
[2017-03-13] MEDS: PANTOPRAZOLE 40 MG TAB PO SCH (10:57)
[2017-03-13] MEDS: MUPIROCIN 2% OINT 22GM EACHNOSTRI SCH ×2 (10:57→21:38)
[2017-03-13] MEDS: NIACIN 100 MG TAB PO SCH (10:57)
[2017-03-13] MEDS: MULTIPLE VITAMIN TAB PO SCH (10:57)
[2017-03-13] MEDS: carBAMazepine 200 MG TAB PO SCH ×2 (10:57→21:37)
[2017-03-13] MEDS: LACTULOSE 20Gm/30ML SOLN PO PRN (12:32)
[2017-03-13 15:24] VITALS: BP 143/79
[2017-03-13] MEDS: fentaNYL 100MCG/HR 100 MCG/HR PAT TD SCH (16:10)
[2017-03-13 17:22] VITALS: BP 152/84
[2017-03-13 18:00] VITALS: BP 132/73
[2017-03-13] MEDS: MIRTAZAPINE 30 MG TAB PO SCH (21:37)
[2017-03-14 05:00] VITALS: BP 147/80
[2017-03-14] MEDS: busPIRone HCL 10 MG TAB PO SCH ×3 (06:00→21:12)
[2017-03-14] MEDS: clonazePAM 0.5 MG TAB PO SCH ×3 (06:00→21:13)
[2017-03-14] MEDS: VANCOMYCIN HCL 125MG/5ML ORAL SOL PO SCH ×3 (06:00→17:07)
[2017-03-14] MEDS: LEVOTHYROXINE SODIUM 25 MCG TAB PO SCH (06:45)
[2017-03-14] MEDS: LEVOTHYROXINE SODIUM 112 MCG TAB PO SCH (06:45)
[2017-03-14] MEDS: ACCU-CHEK COMFORT CURVE STRIP VI SCH ×4 (06:46→21:13)
[2017-03-14] MEDS: InsuLIN REG 1unit/0.01ml Soln (100units/ml) SC SCH ×4 (06:46→21:22)
[2017-03-14 08:00] VITALS: BP 146/79
[2017-03-14] MEDS: MORPHINE SULF INJ 2 MG/ML SYRINGE 1ML IV PRN ×3 (08:35→18:46)
[2017-03-14 09:00] VITALS: BP 146/79
[2017-03-14] MEDS: NIACIN 100 MG TAB PO SCH (09:24)
[2017-03-14] MEDS: MULTIPLE VITAMIN TAB PO SCH (09:25)
[2017-03-14] MEDS: Boost Glucose Control 8 Ounces PO SCH ×2 (09:25→21:13)
[2017-03-14] MEDS: PANTOPRAZOLE 40 MG TAB PO SCH (09:25)
[2017-03-14] MEDS: carBAMazepine 200 MG TAB PO SCH ×2 (09:25→21:13)
[2017-03-14] MEDS: MUPIROCIN 2% OINT 22GM EACHNOSTRI SCH ×2 (09:25→21:13)
[2017-03-14 13:00] VITALS: BP 128/98
[2017-03-14] MEDS: fentaNYL 100MCG/HR 100 MCG/HR PAT TD SCH (16:28)
[2017-03-14 17:00] VITALS: BP 149/89
[2017-03-14] MEDS: ONDANSETRON HCL 4 MG/2 ML VIAL IV PRN (18:58)
[2017-03-14] MEDS: MIRTAZAPINE 30 MG TAB PO SCH (21:12)
[2017-03-14 22:01] VITALS: BP 129/88
[2017-03-15] MEDS: VANCOMYCIN HCL 125MG/5ML ORAL SOL PO SCH ×5 (00:05→23:51)
[2017-03-15 04:59] VITALS: BP 126/81
[2017-03-15] MEDS: clonazePAM 0.5 MG TAB PO SCH ×3 (05:43→21:05)
[2017-03-15] MEDS: busPIRone HCL 10 MG TAB PO SCH (05:43)
[2017-03-15] MEDS: LEVOTHYROXINE SODIUM 25 MCG TAB PO SCH (06:23)
[2017-03-15] MEDS: LEVOTHYROXINE SODIUM 112 MCG TAB PO SCH (06:24)
[2017-03-15] MEDS: ONDANSETRON HCL 4 MG/2 ML VIAL IV PRN ×3 (06:24→16:55)
[2017-03-15] MEDS: ACCU-CHEK COMFORT CURVE STRIP VI SCH ×4 (06:24→21:05)
[2017-03-15] MEDS: MORPHINE SULF INJ 2 MG/ML SYRINGE 1ML IV PRN ×3 (06:24→16:55)
[2017-03-15 06:30] LABS: Basophils # (auto) 0 uL; Basophils % (auto) 0.4 % (0.0-2.0); CONDITION Y; Eosinophils # (auto) 0.1 uL; Eosinophils % (auto) 1.9 % (0.0-7.0); Hematocrit 33.2 % (36.0-46.0); Hemoglobin 11.2 g/dL (12.2-16.2); Lymphocytes # (auto) 1.5 uL; Lymphocytes % (auto) 40.1 % (10.0-50.0); Mean Corpuscular Hemoglobin 31.5 pg (28.0-32.0); Mean Corpuscular Hgb Conc. 33.8 g/dL (32.0-36.0); Mean Corpuscular Volume 93.3 fL (80.0-100.0); Mean Platelet Volume 8.8 fL (7.4-10.4); Monocytes # (auto) 0.2 uL; Monocytes % (auto) 6.4 % (0.0-12.0); Neutrophils # (auto) 1.9 uL; Neutrophils % (auto) 51.2 % (37.0-80.0); Platelet Count (auto) 163 10^3/uL (140-450); Red Cell Distribution Width 17.7 % (11.6-16.0); White Blood Cell 3.7 10^3/uL (4.4-10.8)
[2017-03-15] MEDS: InsuLIN REG 1unit/0.01ml Soln (100units/ml) SC SCH ×4 (06:33→21:22)
[2017-03-15 07:06] LABS: BUN/Creatinine Ratio 31.1; Bilirubin, Total 0.3 mg/dL (0.2-1.0); Potassium 3.4 mmol/L (3.5-5.1); Total Protein 6.2 g/dL (6.4-8.2)
[2017-03-15 08:00] VITALS: BP 123/83
[2017-03-15 09:00] VITALS: BP 123/83
[2017-03-15] MEDS: Boost Glucose Control 8 Ounces PO SCH ×2 (09:51→21:04)
[2017-03-15] MEDS: MUPIROCIN 2% OINT 22GM EACHNOSTRI SCH ×2 (09:51→21:04)
[2017-03-15] MEDS: PANTOPRAZOLE 40 MG TAB PO SCH (10:23)
[2017-03-15] MEDS: carBAMazepine 200 MG TAB PO SCH ×2 (10:23→21:05)
[2017-03-15] MEDS: NIACIN 100 MG TAB PO SCH (10:23)
[2017-03-15] MEDS: MULTIPLE VITAMIN TAB PO SCH (10:23)
[2017-03-15] MEDS ORDERED: POTASSIUM CHL 10 Meq TABLET PO ONE (11:00)
[2017-03-15 13:00] VITALS: BP 127/77
[2017-03-15 17:00] VITALS: BP 134/72
[2017-03-15] MEDS: MIRTAZAPINE 30 MG TAB PO SCH (21:05)
[2017-03-15 22:27] VITALS: BP 152/66
[2017-03-16] MEDS: MORPHINE SULF INJ 2 MG/ML SYRINGE 1ML IV PRN ×5 (00:26→18:38)
[2017-03-16] MEDS: ONDANSETRON HCL 4 MG/2 ML VIAL IV PRN ×5 (00:26→18:38)
[2017-03-16 05:11] VITALS: BP 130/71
[2017-03-16 06:04] LABS: Basophils # (auto) 0 uL; Basophils % (auto) 0.6 % (0.0-2.0); CONDITION Y; Eosinophils # (auto) 0.1 uL; Eosinophils % (auto) 1.6 % (0.0-7.0); Hematocrit 32.2 % (36.0-46.0); Lymphocytes # (auto) 1.3 uL; Lymphocytes % (auto) 36.8 % (10.0-50.0); Mean Corpuscular Hemoglobin 31.7 pg (28.0-32.0); Mean Corpuscular Hgb Conc. 34.2 g/dL (32.0-36.0); Mean Corpuscular Volume 92.8 fL (80.0-100.0); Mean Platelet Volume 8.6 fL (7.4-10.4); Monocytes # (auto) 0.3 uL; Monocytes % (auto) 7.5 % (0.0-12.0); Neutrophils # (auto) 1.8 uL; Neutrophils % (auto) 53.5 % (37.0-80.0); Platelet Count (auto) 165 10^3/uL (140-450); Red Cell Distribution Width 17.2 % (11.6-16.0); White Blood Cell 3.4 10^3/uL (4.4-10.8)
[2017-03-16] MEDS: clonazePAM 0.5 MG TAB PO SCH ×3 (06:16→21:32)
[2017-03-16] MEDS: VANCOMYCIN HCL 125MG/5ML ORAL SOL PO SCH ×4 (06:16→23:38)
[2017-03-16] MEDS: LEVOTHYROXINE SODIUM 112 MCG TAB PO SCH (06:16)
[2017-03-16] MEDS: LEVOTHYROXINE SODIUM 25 MCG TAB PO SCH (06:16)
[2017-03-16] MEDS: ACCU-CHEK COMFORT CURVE STRIP VI SCH ×4 (06:17→21:34)
[2017-03-16 06:30] LABS: Albumin 2.9 g/dL (3.4-5.0); BUN/Creatinine Ratio 33.3; Bilirubin, Total 0.2 mg/dL (0.2-1.0); Calcium 8.2 mg/dL (8.5-10.1)
[2017-03-16] MEDS: InsuLIN REG 1unit/0.01ml Soln (100units/ml) SC SCH ×4 (06:30→21:34)
[2017-03-16 08:00] VITALS: BP 126/75
[2017-03-16 09:44] VITALS: BP 126/75
[2017-03-16] MEDS: Boost Glucose Control 8 Ounces PO SCH ×2 (10:00→21:33)
[2017-03-16] MEDS: LACTULOSE 20Gm/30ML SOLN PO PRN (11:14)
[2017-03-16] MEDS: Niacin SR 500mg TAB PO SCH (11:15)
[2017-03-16] MEDS: carBAMazepine 200 MG TAB PO SCH ×2 (11:15→21:32)
[2017-03-16] MEDS: PANTOPRAZOLE 40 MG TAB PO SCH (11:15)
[2017-03-16] MEDS: MULTIPLE VITAMIN TAB PO SCH (11:16)
[2017-03-16] MEDS: MUPIROCIN 2% OINT 22GM EACHNOSTRI SCH ×2 (11:28→21:31)
[2017-03-16 13:43] VITALS: BP 143/90
[2017-03-16] MEDS: fentaNYL 100MCG/HR 100 MCG/HR PAT TD SCH (15:01)
[2017-03-16 16:59] VITALS: BP 121/77
[2017-03-16] MEDS: MIRTAZAPINE 30 MG TAB PO SCH (21:33)
[2017-03-16 22:00] VITALS: BP 142/90
[2017-03-17 05:00] VITALS: BP 115/71
[2017-03-17] MEDS: clonazePAM 0.5 MG TAB PO SCH ×3 (06:06→21:18)
[2017-03-17] MEDS: VANCOMYCIN HCL 125MG/5ML ORAL SOL PO SCH ×4 (06:07→23:52)
[2017-03-17] MEDS: LEVOTHYROXINE SODIUM 112 MCG TAB PO SCH (06:16)
[2017-03-17] MEDS: LEVOTHYROXINE SODIUM 25 MCG TAB PO SCH (06:16)
[2017-03-17] MEDS: ACCU-CHEK COMFORT CURVE STRIP VI SCH (06:33)
[2017-03-17] MEDS: InsuLIN REG 1unit/0.01ml Soln (100units/ml) SC SCH (06:33)
[2017-03-17 09:15] VITALS: BP 127/87
[2017-03-17] MEDS: Niacin SR 500mg TAB PO SCH (09:24)
[2017-03-17] MEDS: PANTOPRAZOLE 40 MG TAB PO SCH (09:24)
[2017-03-17] MEDS: carBAMazepine 200 MG TAB PO SCH ×2 (09:24→21:19)
[2017-03-17] MEDS: MULTIPLE VITAMIN TAB PO SCH (09:24)
[2017-03-17] MEDS: MORPHINE SULF INJ 2 MG/ML SYRINGE 1ML IV PRN ×3 (09:26→19:50)
[2017-03-17] MEDS: MUPIROCIN 2% OINT 22GM EACHNOSTRI SCH (09:27)
[2017-03-17] MEDS: ONDANSETRON HCL 4 MG/2 ML VIAL IV PRN ×3 (09:47→19:50)
[2017-03-17] MEDS: Boost Glucose Control 8 Ounces PO SCH ×2 (09:50→21:20)
[2017-03-17 13:04] VITALS: BP 121/85
[2017-03-17 17:03] VITALS: BP 125/83
[2017-03-17] MEDS: MIRTAZAPINE 30 MG TAB PO SCH (21:17)
[2017-03-17 22:00] VITALS: BP 139/77
[2017-03-18 05:00] VITALS: BP 125/66
[2017-03-18] MEDS: clonazePAM 0.5 MG TAB PO SCH ×2 (05:49→14:07)
[2017-03-18] MEDS: VANCOMYCIN HCL 125MG/5ML ORAL SOL PO SCH ×2 (05:50→12:30)
[2017-03-18] MEDS: LEVOTHYROXINE SODIUM 112 MCG TAB PO SCH (06:31)
[2017-03-18] MEDS: LEVOTHYROXINE SODIUM 25 MCG TAB PO SCH (06:31)
[2017-03-18 09:00] VITALS: BP 110/69
[2017-03-18] MEDS: ONDANSETRON HCL 4 MG/2 ML VIAL IV PRN (09:13)
[2017-03-18] MEDS: MORPHINE SULF INJ 2 MG/ML SYRINGE 1ML IV PRN (09:13)
[2017-03-18] MEDS ORDERED: VANC125PO PO (09:52)
[2017-03-18] MEDS: MULTIPLE VITAMIN TAB PO SCH (10:42)
[2017-03-18] MEDS: Niacin SR 500mg TAB PO SCH (10:42)
[2017-03-18] MEDS: PANTOPRAZOLE 40 MG TAB PO SCH (10:42)
[2017-03-18] MEDS: carBAMazepine 200 MG TAB PO SCH (10:51)
[2017-03-18 13:00] VITALS: BP 136/91
[2017-03-18 19:38] VITALS: BP 110/67
== END 2017-03-18 14:52 | disposition home or self-care (01) | DRG 394 ==
LOC: EDBD 11:24 → ER 11:24 → TELE 11:25 → WEST WING 18:08 → TELE-WESTW 19:17 → WEST WING 03-12 16:22
PROVIDERS: ADMIT Internal Medicine; ATTEND Internal Medicine
DX: K52.1 Toxic gastroenteritis and colitis (principal); F11.20 Opioid dependence, uncomplicated; F13.20 Sedative, hypnotic or anxiolytic dependence, uncomplicated; T47.1X5A Adverse effect of other antacids and anti-gastric-secretion drugs, initial encounter; K59.00 Constipation, unspecified; E86.0 Dehydration; E03.9 Hypothyroidism, unspecified; E83.41 Hypermagnesemia; E83.51 Hypocalcemia; K21.9 Gastro-esophageal reflux disease without esophagitis; F03.90 Unspecified dementia, unspecified severity, without behavioral disturbance, psychotic disturbance, mood disturbance, and anxiety; F41.1 Generalized anxiety disorder; I11.9 Hypertensive heart disease without heart failure; G43.909 Migraine, unspecified, not intractable, without status migrainosus; E11.9 Type 2 diabetes mellitus without complications; G89.29 Other chronic pain; Z22.322 Carrier or suspected carrier of Methicillin resistant Staphylococcus aureus; Z79.899 Other long term (current) drug therapy; Z82.49 Family history of ischemic heart disease and other diseases of the circulatory system; Y92.89 Other specified places as the place of occurrence of the external cause; Z88.2 Allergy status to sulfonamides; Z86.19 Personal history of other infectious and parasitic diseases; Z88.8 Allergy status to other drugs, medicaments and biological substances; Z79.82 Long term (current) use of aspirin; Z71.3 Dietary counseling and surveillance
CPT/HCPCS: 36415; 71010; 80053; 81001; 82150; 82270; 82962; 83036; 83690; 83735; 84484; 85025; 87045; 87081; 87493; 87899; 93005; 94761; 96360; 97116; 97530; J1815; J2405